=== PATIENT | male | born 1960 | race Caucasian/White ===

== ENCOUNTER 2023-12-21 04:09 | Emergency (ER) | payer BC, SELFPAY ==
[2023-12-21 04:13] VITALS: BP 146/79
--- NOTE | 2023-12-21 04:41 | ED.MUSCINJ ---
HPI-Injury
General
Chief Complaint: Fall
Source: patient
Exam Limitations: none
Time Seen by Provider: 12/21/23 04:28
Nursing documentation reviewed up to this point in time: agreed with
Travel History
Have you had any contact with someone who has COVID-19?: No
Do you have any symptoms of coronavirus? Fever > 100 degrees, chills, cough, shortness of breath, sore throat, loss of taste or smell, muscle aches, or headache?: No
History of Present Illness-Injury
Initial Injury comments:
Pleasant 63-year-old male presents with left wrist pain. He states that he fell over a dog bed. Denies loss of consciousness or head injury. He states that his wrist has been bothering him for the last week since he fell out of his mobility
scooter landing on his left wrist a week ago. He came to the emergency department because he had two injuries to the left wrist in the last week. Denies numbness or tingling.
Past History
Past History
ED Past Medical History: HTN and NIDDM
ED Past Surgical History: Orthopedic
Social History
Tobacco: Smoker
Alcohol: None
Drug: None
Personal:
Living: alone
Employment: Employed
Family History
Family History: Hypertension
Musculoskeletal Injury Exam
Musculoskeletal Injury Exam
Left Distal Wrist:
Pain with Movement?: Mild
Tender to palpation?: Mild
Soft tissue swelling?: None
External deformity and angulation?: None
Joint effusion?: None
Contusion?: Mild (From previous injury 1 week ago)
Strain- Sprain- Tear (Connective tissue injury)?: Mild
Crepitus with movement?: No
Joint instability?: No
Malalignment/deformity?: No
Range of motion: Full
Distal skin color and temperature: normal-warm & good color
Normal distal neurovascular exam?: No
Phy Exam
General Physical Exam
General Presentation: well appearing and no apparent distress
General age: appears stated age
General Skin: warm and dry
General Habitus: normal
General Mental: alert
General Hydration: appears well hydrated
ENT Exam
ENT Exam: EOMI, pharynx normal, neck supple and normocephalic
Eye Exam
Eye Exam: PERRL, cornea clear and conjunctiva normal
Pulmonary Exam
Pulmonary Exam: lungs clear
Gastrointestinal Exam
Gastrointestinal Exam: normal bowel sounds, non tender, soft, no organomegaly, no pulsatile mass and non distended
Neurological Exam
Neurological Exam: alert, oriented x3, no motor deficits and speech normal
Musculoskeletal Exam
Musculoskeletal Exam: full ROM and no edema
Skin Exam
Skin Exam: normal color, warm/dry, no rash and no petechia
Psychiatric Exam
Psychiatric Exam: normal mood/affect
Injury Course
Orders/Labs/Results
Orders:
Orders
12/21/23 04:23
Wrist, Left 3 Views CR [CR Wrist - Left Min 3 Views] Urgent
Comment:
Reason For Exam: fell, c/o pain and swelling to l wrist
ED Attending Note
-
Portions of this chart may have been created with voice recognition software.� Occasional wrong word or��sound alike� substitutions may have occurred due to the inherent limitations of voice recognition software.
Discharge Plan
Departure
Patient Disposition: Home (Routine Discharge)
Date of Disposition: 12/21/23
Time of Disposition: 04:50
Patient with high blood pressure during this ER visit?: Yes
Condition: Good
Discharge Problem:
Left wrist sprain
Prescriptions:
No Action
enalapril maleate 5 MG tablet
20 mg PO DAILY
metoprolol succinate 50 MG tablet extended release 24 hr
50 mg PO DAILY
allopurinol 100 MG tablet
300 mg PO DAILY
sildenafil [Viagra] 100 MG tablet
100 mg PO PRN PRN (Reason: sexual activity)
metformin 1,000 MG tablet
1,000 mg PO BID
esomeprazole magnesium [Nexium] 40 MG capsule,delayed release(DR/EC)
40 mg PO DAILY
hydrocodone-acetaminophen 5 MG/500 MG tablet
1 tab PO Q4HPRN PRN (Reason: pain)
aspirin [Low-Dose Aspirin] 81 MG tablet
81 mg PO DAILY
celecoxib [Celebrex] 100 MG capsule
100 mg PO BID
bupropion HCl 300 MG tablet extended release 24 hr
300 mg PO DAILY
fexofenadine-pseudoephedrine [Criselda-D 24 Hour] 180-240 mg tablet extended release 24 hr
1 tab.sr PO DAILY
varenicline [Chantix] 1 MG tablet
1 mg PO BID
Nasacort Aq
2 spray intranasal DAILY
pioglitazone 45 MG tablet
45 mg PO DAILY
hqvgqpcq-sdx-BT-lycopen-lutein [Centrum Silver] 1 EACH tablet
1 ea PO DAILY
Lipitor:
20 mg PO DAILY
hydrocodone-acetaminophen [Vicodin] 1 EACH tablet
1 ea PO .Q4-6HPRN Qty: 12 0RF
ibuprofen 600 MG tablet
600 mg PO Q6H Qty: 30 0RF
diazepam 5 MG tablet
5 mg PO TIDPRN PRN (Reason: pain) Qty: 14 0RF
hydrocodone-acetaminophen [Vicodin ES] 1 EACH tablet
1 ea PO Q4 PRN (Reason: pain) Qty: 10 0RF
Interventions
Interventions:
*Risk Screen - Suicide Last Done: 12/21/23 04:13
*General Assessment Last Done: 12/21/23 04:13
*Neglect/Abuse Screening Last Done: 12/21/23 04:13
ED- Fall Risk Assessment Last Done: 12/21/23 04:13
*ED COVID-19 Vaccine History Last Done: 12/21/23 04:13
Discharge Date and Time
Print Language: KOREAN
== END 2023-12-21 05:12 | disposition home or self-care (01) ==
LOC: EMR 04:09
PROVIDERS: EMERGENCY PHYSICIAN Student in an Organized Health Care Education/Training Program; FAMILY PHYSICIAN Family Medicine
DX: S63.502A Unspecified sprain of left wrist, initial encounter (principal); W18.09XA Striking against other object with subsequent fall, initial encounter; I10 Essential (primary) hypertension
CPT/HCPCS: 99283; 73110